=== PATIENT | female | born 2005 | race Caucasian/White ===

== ENCOUNTER 2024-03-02 21:11 | Emergency (ER) | payer OTHER ==
[~2024-03-02] VITALS: Ht 172.7 cm; Wt 88.5 kg
[2024-03-02 21:39] VITALS: BP_SYST 130; PULSE 91; RESP 18; TEMP 98.5; O2SAT 99
[2024-03-02] MEDS: ACETAMINOPHEN 500 MG TABLET PO ONE (23:03)
[2024-03-02] MEDS: KETOROLAC TROMETHAMINE 30 MG VIAL IM ONE (23:07)
[2024-03-02] MEDS: DIPHTH,PERTUSS(ACELL),TET VAC 0.5 ML VIAL (Tdap) I.M. ONE (23:11)
[2024-03-02 23:20] VITALS: BP_SYST 125; PULSE 90; RESP 17; TEMP 98.5; O2SAT 99
== END 2024-03-02 21:20 | disposition home or self-care (01) ==
LOC: SED 21:11
DX: S91.202A Unspecified open wound of left great toe with damage to nail, initial encounter (principal); L25.9 Unspecified contact dermatitis, unspecified cause; M79.641 Pain in right hand; Z79.899 Other long term (current) drug therapy; W22.8XXA Striking against or struck by other objects, initial encounter; Y93.89 Activity, other specified; Y92.89 Other specified places as the place of occurrence of the external cause; Y99.8 Other external cause status
CPT/HCPCS: 99284; 73630; 90715; 96372; 90471; J1885

== ENCOUNTER 2024-03-06 14:47 | Emergency (ER) | payer OTHER ==
[~2024-03-06] VITALS: Ht 172.7 cm; Wt 88.5 kg
[2024-03-06 14:57] VITALS: BP_SYST 143; PULSE 93; RESP 20; TEMP 98.3; O2SAT 99
[2024-03-06 15:18] LABS: BILIRUBIN,URINE NEGATIVE (NEGATIVE); BLOOD, URINE 1+ (NEGATIVE); CLARITY/URINE CLEAR (CLEAR); COLOR,URINE YELLOW (YELLOW); GLUCOSE,URINE NEGATIVE (NEGATIVE); KETONES,URINE NEGATIVE (NEGATIVE); NITRITE, URINE NEGATIVE (NEGATIVE); PROTEIN URINE TRACE (NEGATIVE); UROBILINOGEN,URINE 0.2 (0.2-1.0)
[2024-03-06 15:26] LABS: LEUKOCYTE ESTERASE ,URINE TRACE (NEGATIVE)
[2024-03-06 15:27] LABS: BACTERIA,URINE RARE /HPF (None Seen); MUCUS,URINE None Seen /LPF (None Seen); RBC,URINE NONE SEEN /HPF (0-3)
[2024-03-06 15:42] LABS: BASOPHILS # (AUTO) 0.1 K/uL (0.0-0.2); BASOPHILS % (AUTO) 0.8 % (0.0-2.0); EOSINOPHILS # (AUTO) 0.1 K/uL (0.0-0.4); EOSINOPHILS % (AUTO) 0.7 % (0.0-4.0); HEMATOCRIT 37.5 % (36-48); HEMOGLOBIN 12.4 g/dL (12.0-16.0); LYMPHOCYTES # (AUTO) 2.2 K/uL (1.0-5.5); LYMPHOCYTES % (AUTO) 18.6 % (20.5-51.5); MEAN CORPUSCULAR HEMOGLOBIN 28 pg (27-31); MEAN CORPUSCULAR HGB CONC 33 % (32-36); MEAN CORPUSCULAR VOLUME 84 fL (79.0-98.0); MONOCYTES # (AUTO) 0.8 K/uL (0.0-1.0); MONOCYTES % (AUTO) 6.5 % (1.7-9.3); NEUTROPHILS # (AUTO) 8.8 K/uL (1.8-7.7); NEUTROPHILS % (AUTO) 73.4 % (40.0-70.0); PLATELET COUNT (AUTO) 371 K/uL (130-430); RED BLOOD CELL COUNT(AUTO) 4.47 MIL/uL (4.2-6.2); RED CELL DISTRIBUTION WIDTH 13.8 % (9.0-15.0); WHITE BLOOD COUNT (AUTO) 11.9 K/uL (4.5-11.0)
[2024-03-06 15:44] LABS: SERUM HCG (QUALITATIVE) NEGATIVE (NEGATIVE)
[2024-03-06 15:49] LABS: CALCIUM 8.9 mg/dL (8.4-11.0); CREATININE 1.07 mg/dL (0.55-1.30); POTASSIUM 3.7 mmol/L (3.5-5.1)
[2024-03-06 16:28] LABS: ALBUMIN 3.8 g/dL (3.4-4.8); BILIRUBIN,DIRECT 0.1 mg/dL (0.0-0.3); TOTAL BILIRUBIN 0.3 mg/dL (0.0-1.0); TOTAL PROTEIN, SERUM 7.8 g/dL (6.4-8.3)
[2024-03-06] MEDS ORDERED: HYDR-3917 PO (17:07)
[2024-03-06] MEDS ORDERED: NITR-85 PO (17:07)
[2024-03-06] MEDS ORDERED: IBUP-1969 PO (17:07)
[2024-03-06 17:47] VITALS: BP_SYST 143; PULSE 93; RESP 20; TEMP 98.3; O2SAT 99
== END 2024-03-06 17:49 | disposition home or self-care (01) ==
LOC: SED 14:47
DX: R10.32 Left lower quadrant pain (principal); R11.2 Nausea with vomiting, unspecified; Z79.899 Other long term (current) drug therapy
CPT/HCPCS: 36415; 80048; 80076; 81000; 81001; 81015; 82150; 83605; 83690; 84703; 85025; 99284